=== PATIENT | male | born 1975 | race Caucasian/White ===

== ENCOUNTER 2016-10-27 06:22 | Emergency (ER) | payer OTHER | END 2016-10-27 07:12 | disposition home or self-care (01) | LOC: ER 06:22 | DX: H60.92 Unspecified otitis externa, left ear (principal); E11.9 Type 2 diabetes mellitus without complications; I10 Essential (primary) hypertension; Z79.4 Long term (current) use of insulin; Z79.899 Other long term (current) drug therapy; Z88.0 Allergy status to penicillin; Z88.1 Allergy status to other antibiotic agents; Z88.6 Allergy status to analgesic agent | CPT/HCPCS: 99282 ==